=== PATIENT | female | born 1960 | race Caucasian/White ===

== ENCOUNTER 2016-10-04 09:35 | Emergency (ER) | payer BC ==
[2016-10-04 09:47] VITALS: BP 172/93
--- NOTE | 2016-10-04 09:58 | UC ---
Respiratory Complaint HPI - HPI Summary HPI Summary: 55F presents with productive cough for 3 days. She denies any fever, sinus congestion, sore throat, chest pain, or headache. She has been using Ntyquil, robitussin, and Tylenol with some relief. She denies any smoking or history or history of respiratory illness. PMH of hypothyroidism and HTN. - History of Current Complaint Chief Complaint: UCRespiratory Stated Complaint: COUGH, AND CHEST CONGESTION Time Seen by Provider: 10/04/16 09:53 Hx Last Menstrual Period: 08/05/16 - Allergies/Home Medications Allergies/Adverse Reactions: Allergies Allergy/AdvReac Type Severity Reaction Status Date / Time Amoxicillin Allergy Intermediate Rash Verified 01/21/16 10:16 Home Medications: Home Medications GuaiFENesin DM* [Robitussin DM*] 10/04/16 [History] Beqfqplmkhhex-Jsynlftptd-Hamnt [Nyquil Severe Cold/Flu 5-6.25-10-325 mg/15Ml] 10/04/16 [History] PMH/Surg Hx/FS Hx/Imm Hx Endocrine History Of: Reports: Thyroid Disease - Hypothyroid Denies: Diabetes Cardiovascular History Of: Reports: Hypertension Denies: Cardiac Disorders Respiratory History Of: Denies: COPD, Asthma GI/ History Of: Reports: Kidney Stones - h/o Denies: Ulcer - Surgical History Surgical History: Yes Surgery Procedure, Year, and Place: Lap Band Surgery 2007, reversed 2016. Bilateral Carpal Tunnel . c-SECTIONS X 2 - Family History Known Family History: Positive: Cardiac Disease - Mother, Father, and Brother had MIs, Hypertension, Diabetes - Mother, Father Negative: Respiratory Disease - Social History Alcohol Use: Rare Substance Use Type: None Smoking Status (MU): Former Smoker Type: Cigarettes Amount Used/How Often: 1/2 PPD Length of Time of Smoking/Using Tobacco: 10 years Have You Smoked in the Last Year: No When Did the Patient Quit Smoking/Using Tobacco: 1986 Household Exposure Type: Cigarettes - Immunization History Hx Tetanus, Diphtheria Vaccination: Yes Vaccination Up to Date: Yes Review of Systems Constitutional: Negative Eyes: Negative ENT: Negative Respiratory: Cough Cardiovascular: Negative Gastrointestinal: Negative All Other Systems Reviewed And Are Negative: Yes Physical Exam Triage Information Reviewed: Yes Appearance: Well-Appearing Vital Signs: Initial Vital Signs Temp 98.4 F 01/29/17 09:40 Pulse 80 10/04/16 09:40 Resp 20 10/04/16 09:40 BP 172/93 10/04/16 09:40 Pulse Ox 98 10/04/16 09:40 Vital Signs Reviewed: Yes ENT: Positive: Normal ENT inspection, Pharynx normal, TMs normal Neck: Positive: Supple, Nontender, No Lymphadenopathy Respiratory: Positive: Lungs clear, Normal breath sounds, No respiratory distress, No accessory muscle use, Other: - neg egophony. Negative: Crackles, Rhonchi, Stridor, Wheezing Cardiovascular: Positive: RRR UC Diagnostic Evaluation - Laboratory O2 Sat by Pulse Oximetry: 98 Respiratory Course/Dx - Course Course Of Treatment: 55F presents with productive cough for 3 days. She has taking OTC cough medication with some relief. Her lungs are CTA. Discussed likely viral but gave option of antibiotic but patient declined at this time. advised if develops fever to come back or follow up with primary. will add tessalon and advised to use humdifier. patient agrees with plan. - Differential Dx/Diagnosis Differential Diagnosis/HQI/PQRI: Bronchitis, Influenza, Laryngitis, Lower Resp Infection Provider Diagnoses: bronchitis Discharge - Discharge Plan Condition: Good Disposition: HOME Prescriptions: Benzonatate CAP* [Tessalon CAP*] 100 mg PO TID #15 cap Patient Education Materials: Acute Bronchitis (ED) Forms: *Work Release Referrals: Kaylin Gilmore MD [Primary Care Provider] - Additional Instructions: Use Tessalon three times a day for cough Use saline in the nose Use humidifier or place warm bowls of water around the room Cough can last up to 4 weeks Follow up with primary care physician in 5 days Return to ED if develop chest pain or shortness of breath or any new or worsening symptoms
== END 2016-10-04 10:20 | disposition home or self-care (01) ==
LOC: UCEAST 09:35
DX: J40 Bronchitis, not specified as acute or chronic (principal); Z98.84 Bariatric surgery status; Z87.891 Personal history of nicotine dependence; Z88.1 Allergy status to other antibiotic agents
CPT/HCPCS: 99212; G0463

== ENCOUNTER 2016-10-18 13:14 | Emergency (ER) | payer BC ==
[2016-10-18 13:39] VITALS: BP 149/69
[2016-10-18] MEDS ORDERED: Naproxen TAB* 250 MG PO ONE (14:02)
--- NOTE | 2016-10-18 14:51 | RAD ---
INDICATION: Back pain 2 days after a fall COMPARISON: CT abdomen pelvis dated September 14, 2009 TECHNIQUE: 2 views of the thoracic spine and 5 views of the lumbar spine were obtained. FINDINGS: The vertebra are in normal alignment. No acute fracture is seen. Degenerative changes include loss of intervertebral disc height most severely affecting the mid and lower thoracic spine where there are anterior marginal osteophytes.. IMPRESSION: Degenerative changes as described above without radiographic evidence of acute fracture or dislocation.
--- NOTE | 2016-10-26 15:20 | UC ---
Kena Marie Claudia, scribed for Debra Beverly MD on 10/18/16 at 1355 . Back Pain HPI - HPI Summary HPI Summary: 55 year old female presents to the [facility] post mechanical fall on Wednesday10/16/16. She Pt felt some soreness in her back yesterday but today she woke up with intense mid to right posterior area back pain as well as lower para spinal pain. Pt notes that she is concerned because she is driving to [place] in the coming weeks to visit family and sitting in the car/ twisting around on her way to [facility] today aggravated the pain. Pt describes the pain as a pressure/pulling. - History of Current Complaint Chief Complaint: UCBackPain Stated Complaint: FELL-LOWER BACK PAIN Time Seen by Provider: 10/18/16 13:46 Hx Obtained From: Patient Hx Last Menstrual Period: 08/05/16 ?: No Onset/Duration: Sudden Onset, Lasting Days, Still Present Timing: Constant Back Pain: Is Discrete @ - lower paraspinal Character: Spasmodic - pressure Aggravating: Movement - twisting Associated Signs And Symptoms: Negative: Fever, Bladder Incontinence, Bowel Incontinence - Allergies/Home Medications Allergies/Adverse Reactions: Allergies Allergy/AdvReac Type Severity Reaction Status Date / Time Amoxicillin Allergy Intermediate Rash Verified 10/18/16 13:32 Home Medications: Home Medications Blood Pressure Med W/ Diuretic 1 tab DAILY 10/18/16 [History] PMH/Surg Hx/FS Hx/Imm Hx Previously Healthy: Yes Endocrine History Of: Reports: Thyroid Disease - Hypothyroid Denies: Diabetes Cardiovascular History Of: Reports: Hypertension Denies: Cardiac Disorders Respiratory History Of: Denies: COPD, Asthma GI/ History Of: Reports: Kidney Stones - h/o Denies: Ulcer - Surgical History Surgical History: Yes Surgery Procedure, Year, and Place: Lap Band Surgery 2007, reversed 2016. Bilateral Carpal Tunnel . c-SECTIONS X 2 - Family History Known Family History: Positive: Cardiac Disease - Mother, Father, and Brother had MIs, Hypertension, Diabetes - Mother, Father Negative: Respiratory Disease - Social History Occupation: Employed Full-time Lives: With Family Alcohol Use: None Substance Use Type: None Smoking Status (MU): Former Smoker Type: Cigarettes Amount Used/How Often: 1/2 PPD Length of Time of Smoking/Using Tobacco: 10 years Have You Smoked in the Last Year: No When Did the Patient Quit Smoking/Using Tobacco: 1986 Household Exposure Type: Cigarettes - Immunization History Hx Tetanus, Diphtheria Vaccination: Yes Vaccination Up to Date: Yes Review of Systems Constitutional: Other - NO FEVER CHILLS Skin: Negative Eyes: Negative ENT: Negative Respiratory: Negative Cardiovascular: Negative Gastrointestinal: Negative Genitourinary: Negative Motor: Negative Neurovascular: Negative Musculoskeletal: Other: - BACK PAIN. see hpi. Neurological: Negative Psychological: Negative All Other Systems Reviewed And Are Negative: Yes Physical Exam Triage Information Reviewed: Yes Appearance: Well-Nourished Vital Signs: Initial Vital Signs Temp 98.3 F 10/18/16 13:34 Pulse 91 10/18/16 13:34 Resp 18 10/18/16 13:34 BP 149/69 10/18/16 13:34 Pulse Ox 98 10/18/16 13:34 Vital Signs Reviewed: Yes Eye Exam: Normal ENT Exam: Normal Dental Exam: Normal Neck exam: Normal Respiratory Exam: Normal Respiratory: Positive: Chest non-tender, Lungs clear, Normal breath sounds, No respiratory distress, No accessory muscle use Cardiovascular Exam: Normal, Other - systolic murmer 1-2 / 6 at LSB Cardiovascular: Positive: RRR, Pulses Normal, Brisk Capillary Refill Abdominal Exam: Normal Abdomen Description: Positive: Nontender, No Organomegaly, Soft Musculoskeletal Exam: Normal, Other - Tender generalized middle of mid - low back, worse leaning forward. Jaonna tender mid lumbar area. No ecchymosis, no crepitus. No cvat. No point rib pain or crepitus. Musculoskeletal: Positive: Strength Intact Neurological Exam: Normal - NONFOCAL Psychological Exam: Normal - CONVERSING EASILY AND APPROPRIATELY Skin Exam: Normal - NO VISIBLE RASHES Back Pain Course/Dx - Course Course Of Treatment: XRays (L/T) - reviewed with pt. ++ djd, + oa. No acute fx. See Oculeve. 14:55 awaiting report. No new problems in CCC. Work note offered, pt declines. She will f/u w/ pcp. She has plans to f/u re cardiology as well (heart m). Ms. Banks was given the opportunity to ask several questions, to which I answered to the best of my ability. - Differential Dx/Diagnosis Provider Diagnoses: Acute lumbar thoracic strain Discharge - Discharge Plan Condition: Stable Disposition: HOME Discharge Disposition Comment: Sign-out due to shift change. Prescriptions: Cyclobenzaprine TAB* [Flexeril TAB*] 10 mg PO TID PRN #20 tab PRN Reason: Spasms Naproxen [Naproxen 500 MG TABS] 500 mg PO BID PRN #30 tab PRN Reason: Pain Patient Education Materials: Low Back Strain (ED), Arthritis (ED) Referrals: No Primary Care Phys,NOPCP [Primary Care Provider] - Additional Instructions: Follow up with your primary care physician at [place], in the next 1-2 weeks for re-evaluation. Seek medical attention for worse or new problems in the meantime. The documentation as recorded by the Kena oviedo Claudia accurately reflects the service I personally performed and the decisions made by me, Debra Beverly MD.
== END 2016-10-18 15:00 | disposition home or self-care (01) ==
LOC: UCEAST 13:14
DX: S39.012A Strain of muscle, fascia and tendon of lower back, initial encounter (principal); S29.012A Strain of muscle and tendon of back wall of thorax, initial encounter; W19.XXXA Unspecified fall, initial encounter; Y93.9 Activity, unspecified; Y92.9 Unspecified place or not applicable; Z88.0 Allergy status to penicillin; I10 Essential (primary) hypertension; Z87.891 Personal history of nicotine dependence; Z98.84 Bariatric surgery status
CPT/HCPCS: 72070; 72110; 99212; A9270-GY; G0463

== ENCOUNTER 2017-03-19 11:31 | Emergency (ER) | payer BC ==
--- NOTE | 2017-03-19 13:54 | UC ---
Knee Pain HPI - HPI Summary HPI Summary: compalint of right knee pain that started 6 daysa go was playing with grandchildren and fell fell forwrd going up a hill was able to ambulate afterwards knee has had intermittent swelling pain is in the front of knee getting up from sitting is the most painful left knee also painful but not as painful taking tyleno and ibuprofen with some relief using a cold knee wrap with some relief - History of Current Complaint Hx Obtained From: Patient Hx Last Menstrual Period: 01/17/17 <Koki Ramirez - Last Filed: 03/19/17 14:55> <Kaylin Hess - Last Filed: 03/19/17 15:10> - History of Current Complaint Chief Complaint: UCLowerExtremity Stated Complaint: KNEE INJURY Time Seen by Provider: 03/19/17 13:43 - Allergies/Home Medications Allergies/Adverse Reactions: Allergies Allergy/AdvReac Type Severity Reaction Status Date / Time Amoxicillin Allergy Intermediate Rash Verified 03/19/17 13:23 Home Medications: Home Medications Acetaminophen TAB* [Tylenol TAB*] 03/19/17 [History] PMH/Surg Hx/FS Hx/Imm Hx Previously Healthy: Yes Endocrine History: Hypothyroidism Cardiovascular History: Hypertension - Surgical History Surgical History: Yes Surgery Procedure, Year, and Place: Lap Band Surgery 2007, reversed 2016. Bilateral Carpal Tunnel . c-SECTIONS X 2. Lap band removal - Family History Known Family History: Positive: Cardiac Disease - Mother, Father, and Brother had MIs, Hypertension, Diabetes - Mother, Father Negative: Respiratory Disease - Social History Occupation: Employed Full-time Lives: With Family Alcohol Use: None Substance Use Type: None Smoking Status (MU): Former Smoker Type: Cigarettes Amount Used/How Often: 1/2 PPD Length of Time of Smoking/Using Tobacco: 10 years Have You Smoked in the Last Year: No When Did the Patient Quit Smoking/Using Tobacco: 1986 Household Exposure Type: Cigarettes - Immunization History Hx Tetanus, Diphtheria Vaccination: Yes Vaccination Up to Date: Yes <Koki Ramirez - Last Filed: 03/19/17 14:55> Review of Systems Constitutional: Negative Skin: Negative Eyes: Negative ENT: Negative Respiratory: Negative Cardiovascular: Negative Gastrointestinal: Negative Genitourinary: Negative Motor: Negative Neurovascular: Negative Musculoskeletal: Other: - bilateral knee pain Neurological: Negative Psychological: Negative All Other Systems Reviewed And Are Negative: Yes <Koki Ramirez - Last Filed: 03/19/17 14:55> Physical Exam Triage Information Reviewed: Yes Appearance: No Pain Distress, Well-Nourished Vital Signs: Initial Vital Signs Temp 97.4 F 03/19/17 13:24 Pulse 71 03/19/17 13:24 Resp 16 03/19/17 13:24 Pulse Ox 98 03/19/17 13:24 Vital Signs Reviewed: Yes Eyes: Positive: Conjunctiva Inflamed ENT: Positive: Pharynx normal, TMs normal Neck: Positive: No Lymphadenopathy Respiratory: Positive: Lungs clear, Normal breath sounds, No respiratory distress, No accessory muscle use Cardiovascular: Positive: RRR, No Murmur, Pulses Normal Abdomen Description: Positive: Nontender, Soft Bowel Sounds: Positive: Present Musculoskeletal: Positive: Other: - No bony deformities, tenderness above the patella, No bakers cyst. Full ROM (extension/flexion). Limited internal and external rotation. Medial, lateral meniscus; anterior, posterior cruciate ligaments ,medial & lateral collateral ligaments intact as assessed with negative Anterior/Posterior Drawer signs, Lachmans, and McMurrays Tests. No effusion, bulge/balloon sign. left knee slight tenderness medial side of patella No bakers cyst. Full ROM (extension/flexion). Limited internal and external rotation. Medial, lateral meniscus; anterior, posterior cruciate ligaments ,medial & lateral collateral ligaments intact as assessed with negative Anterior/Posterior Drawer signs, Lachmans, and McMurrays Tests. No effusion, bulge/balloon sign. Neurological: Positive: Alert Psychological Exam: Normal Skin Exam: Normal <Koki Ramirez - Last Filed: 03/19/17 14:55> Vital Signs: Initial Vital Signs Temp 97.4 F 03/19/17 13:24 Pulse 71 03/19/17 13:24 Resp 16 03/19/17 13:24 BP 148/83 03/19/17 13:24 Pulse Ox 98 03/19/17 13:24 <Kaylin Hess - Last Filed: 03/19/17 15:10> Knee Pain Course/Dx - Course Course Of Treatment: exam completed. x-ray shows no fracture. will treat for knee sprain - further evaluation and treatment with PT and orthopedics - Differential Dx/Diagnosis Differential Diagnosis/HQI/PQRI: Fracture (Closed), Sprain, Strain Provider Diagnoses: right knee sprain, elevated blood pressure <Koki Ramirez - Last Filed: 03/19/17 14:55> Discharge <Koki Ramirez - Last Filed: 03/19/17 14:55> <Kaylin Hess - Last Filed: 03/19/17 15:10> - Discharge Plan Condition: Stable Disposition: HOME Patient Education Materials: Knee Pain (ED), Knee Sprain (ED), RICE Therapy (ED ) Referrals: Kaylin Gilmore MD [Primary Care Provider] - Agustina Diaz MD [Medical Doctor] - Additional Instructions: Please contact physical therapy and talent management specialist for further evaluation and treatment Increase fluids and rest Take acetaminophen or ibuprofen for pain Please review your discharge instructions. If your symptoms do not improve please call your primary care provider or return to urgent care. Your blood pressure is elevated. Please contact your primary care provider within 1 -4 weeks for further evaluation Attestation Statement User Type: Provider - I was available for consult. This patient was seen by the JAVIER. The patient was not presented to, seen by, or examined by me. -Jyoti <Kaylin Hess - Last Filed: 03/19/17 15:10>
[2017-03-19 14:26] VITALS: BP 148/83
--- NOTE | 2017-03-19 14:33 | RAD ---
HISTORY: Trauma, right knee COMPARISONS: None VIEWS: 2, Frontal and lateral views of the right knee FINDINGS: BONE DENSITY: Normal. BONES: There is no displaced fracture. JOINTS: There is mild tricompartmental osteoarthritis. There is a small suprapatellar joint effusion. ALIGNMENT: There is no dislocation. SOFT TISSUES: Unremarkable. OTHER FINDINGS: None. IMPRESSION: SMALL EFFUSION. NO ACUTE OSSEOUS INJURY. IF SYMPTOMS PERSIST, RECOMMEND REPEAT IMAGING.
== END 2017-03-19 14:55 | disposition home or self-care (01) ==
LOC: UCEAST 11:31
DX: S93.401A Sprain of unspecified ligament of right ankle, initial encounter (principal); R03.0 Elevated blood-pressure reading, without diagnosis of hypertension; W17.89XA Other fall from one level to another, initial encounter; Y93.01 Activity, walking, marching and hiking
CPT/HCPCS: 99211; G0463

== ENCOUNTER 2019-10-08 13:31 | Emergency (ER) | payer BC ==
--- OUTSIDE RECORDS SUMMARY | 2019-10-08 13:49 | XMS REPORT | Continuity of Care Document ---
:1960 External Reference #:[id number] Author Name Sofie Villagran MD (transmitted by agent of provider Eulalia Vera) Address [address], [address] [place] [address] Care Team Providers Name Role Phone Gloria Varela, PE MANAGER - Nurse Care Team Information Rn Transition [phone] Practitioner Problems Description No Information Available Social History Type Date Description Comments Sex Unknown ETOH Use Occasionally consumes 2-3 drinks alcohol Recreational Drug Use Denies Drug Use Tobacco Use Start: Unknown End: Patient is a former smoker Unknown Smoking Status Reviewed: 09/09/19 Patient is a former smoker Allergies, Adverse Reactions, Alerts Active Allergies Reaction Severity Comments Date Lisinopril 09/09/2019 Amoxicillin 09/09/2019 Soma Compound 09/09/2019 Medications Active Medications SIG Qnty Indications Ordering Date Provider Celebrex take one Unknown 200mg Capsules capsule/table t daily by mouth Cardizem CD 1 by mouth Unknown 120mg Caps ER 24HR every day Cymbalta 2 by mouth Unknown 30mg Caps DR Part every day Hydrochlorothiazide 2 by mouth Unknown 12.5mg Tablets every day Irbesartan 2 by mouth Unknown 150mg Tablets every day Synthroid 1 by mouth Unknown 200mcg Tablets every day Spironolactone 1 by mouth Unknown 25mg Tablets every day Triamcinolone Acetonide apply 3x day Unknown 0.1% Cream until clear Immunizations Description No Information Available Vital Signs Date Vital Result Comment 09/09/2019 8:20am Height 63.5 inches 5'3.50" Weight 237.00 lb Heart Rate 78 /min BP Systolic 112 mmHg BP Diastolic 72 mmHg O2 % BldC Oximetry 96 % BMI (Body Mass Index) 41.3 kg/m2 Results Description No Information Available Procedures Description No Information Available Medical Devices Description No Information Available Encounters Type Date Location Provider Dx Diagnosis Office Visit 09/09/2019 [facility] Sofie Villagran MD R06.83 Snoring 9:[facility] Z68.41 Body mass index (BMI) 40.0-44.9, adult Assessments Date Code Description Provider 09/09/2019 R06.83 Snoring Sofie Villagran MD 09/09/2019 Z68.41 Body mass index (BMI) 40.0-44.9, adult Sofie Villagran MD Plan of Treatment Future Appointment(s):10/06/2019 9:00 am - Agustina Buck NP at [facility]09/09/2019 - Sofie Villagran, MDR06.83 SnoringFollow up:1 [id number] Body mass index (BMI) 40.0-44.9, adult Functional Status Description No Information Available Mental Status Description No Information Available Referrals Description No Information Available
--- NOTE | 2019-10-08 14:05 | ED ---
Shortness of Breath - HPI Summary HPI Summary: Patient is a 58-year-old female who presents emergency department for shortness of breath times. Patient states she was that work today when she started to feel anxious, short of breath, dizziness and headache. Patient works at [employer] and family member happened to be at [email or web address] and waved to pt. . Patient had felt confused and dizzy and did not wave back. Patient states since in the ER she is feeling better. She notes that she has been anxious lately as she is going to be undergoing bariatric surgery. Past medical history of hypertension, obesity, diabetes. Patient states she had a cardiac catheterization last year that showed 20% stenosis but no occlusions. Patient denies recent illness,, fever, cough, abdominal pain. Sxs are moderate in severity. No current modifying factors. - History of Current Complaint Chief Complaint: EDShortnessOfBreath Time Seen by Provider: 10/08/19 13:41 Hx Obtained From: Patient - Allergy/Home Medications Allergies/Adverse Reactions: Allergies Allergy/AdvReac Type Severity Reaction Status Date / Time amoxicillin Allergy Intermediate Rash Verified 10/08/19 13:38 PMH/Surg Hx/FS Hx/Imm Hx Previously Healthy: Yes Endocrine/Hematology History: Reports: Hx Thyroid Disease - Hypothyroid Denies: Hx Diabetes Cardiovascular History: Reports: Hx Hypertension Respiratory History: Denies: Hx Asthma, Hx Chronic Obstructive Pulmonary Disease (COPD) GI History: Reports: Hx Gastroesophageal Reflux Disease - NO MEDS Denies: Hx Ulcer History: Reports: Hx Kidney Stones - h/o Sensory History: Denies: Hx Contacts or Glasses, Hx Hearing Aid Opthamlomology History: Denies: Hx Contacts or Glasses - Surgical History Surgery Procedure, Year, and Place: Lap Band Surgery 2007, reversed 2016. Bilateral Carpal Tunnel . c-SECTIONS X 2. Lap band removal Hx Anesthesia Reactions: No Infectious Disease History: No Infectious Disease History: Reports: Hx Shingles - 2009 Denies: Hx Clostridium Difficile, Hx Hepatitis, Hx Human Immunodeficiency Virus (HIV), Hx of Known/Suspected MRSA, Hx Tuberculosis, Hx Known/Suspected VRE , Hx Known/Suspected VRSA, History Other Infectious Disease, Traveled Outside the [place] in Last 30 Days - Family History Known Family History: Positive: Cardiac Disease - Mother, Father, and Brother had MIs, Hypertension, Diabetes - Mother, Father Negative: Respiratory Disease - Social History Occupation: Employed Full-time Lives: With Family Alcohol Use: Rare Substance Use Type: Reports: None Hx Tobacco Use: No Smoking Status (MU): Former Smoker Type: Cigarettes Amount Used/How Often: 1/2 PPD Length of Time of Smoking/Using Tobacco: 10 years Have You Smoked in the Last Year: No Review of Systems Constitutional: Negative Negative: Fever Eyes: Negative ENT: Negative Cardiovascular: Negative Negative: Palpitations, Chest Pain Positive: Shortness Of Breath. Negative: Cough Gastrointestinal: Negative Negative: Abdominal Pain, Vomiting, Diarrhea Genitourinary: Negative Musculoskeletal: Negative Skin: Negative Neurological: Negative Positive: Anxious All Other Systems Reviewed And Are Negative: Yes Physical Exam Triage Information Reviewed: Yes Vital Signs On Initial Exam: Initial Vitals Temp Pulse Resp BP Pulse Ox 98.0 F 88 16 156/112 100 10/08/19 13:34 10/08/19 13:34 10/08/19 13:34 10/08/19 13:34 10/08/19 13:34 Vital Signs Reviewed: Yes Appearance: Positive: Well-Appearing - Pt. sitting up in bed in NAD. Anxious. Family present. Skin: Positive: Warm, Dry Head/Face: Positive: Normal Head/Face Inspection Eyes: Positive: Normal, EOMI, LASHANDA Neck: Positive: Supple Respiratory/Lung Sounds: Positive: Clear to Auscultation, Breath Sounds Present. Negative: Rales, Rhonchi, Wheezes Cardiovascular: Positive: Normal, RRR Musculoskeletal: Positive: Normal, Strength/ROM Intact. Negative: Edema Left, Edema Right Neurological: Positive: Normal, CN Intact II-III, Normal Gait, Facial Symmetry, Speech Normal. Negative: Disoriented, Facial Droop Psychiatric: Positive: Anxious Procedures - Sedation Patient Received Moderate/Deep Sedation with Procedure: No Diagnostics - Vital Signs Vital Signs Temp Pulse Resp BP Pulse Ox 10/08/19 14:00 22 10/08/19 13:48 84 20 152/113 98 10/08/19 13:45 87 25 98 10/08/19 13:34 98.0 F 88 16 156/112 100 - Laboratory Result Diagrams: 10/08/19 14:03 10/08/19 14:03 Lab Statement: Any lab studies that have been ordered have been reviewed, and results considered in the medical decision making process. Course/Dx - Course Course Of Treatment: Pt. presenting after an episode of SOB, dizziness and h/a. In the ED pt. is feeling better. Denies CP. BP initially elevated but improved. Pt. notes she has been stresses lately and has been working more than usual and notes she does not drink very much water. ECG done at 1421 shows a sinus rhythm of 78bpm, normal axis, no STEMI, appropriate intervals. Labs are unremarkable including normal troponin and ddimer. CXR negative for acute findings per radiology. Positive ortho statics from lying to sitting. No drop with standing. Pt. ambulated and feeling well. Results discussed. Will dc home. To increase fluids. To f.u with pcp in 2-3 days and return to er if sxs change or worsen. Pt. understands and agrees with plan. - Diagnoses Differential Diagnosis/HQI/PQRI: Positive: Asthma, Bronchitis, COPD Exacerbation , AK, Pulmonary Embolism Provider Diagnoses: Shortness of breath Discharge ED - Sign-Out/Discharge Documenting (check all that apply): Patient Departure - Discharge Plan Condition: Improved Disposition: HOME Patient Education Materials: Dehydration (ED), Shortness of Breath (ED) Forms: *Work Release Referrals: Gloria Varela, [employer] [facility] [Primary Care Provider] - Additional Instructions: Please see your PCP in 2-3 days for recheck Increase fluids and rest Return to ER if symptoms change or worsen - Billing Disposition and Condition Condition: IMPROVED Disposition: Home - Attestation Statements Provider Attestation: I was available for consultation for this patient. I did not evaluate the patient or participate in any medical decision making or disposition decisions unless I am specifically named in the chart as having consulted on the patient. If I have consulted on the patient, please see my own ED note on the patient encounter. Pascual Do MD
[2019-10-08 14:20] LABS: ABS Basophils 0.1 10^3/ul (0-0.2); ABS Eosinophils 0.4 10^3/ul (0-0.6); ABS Lymphocytes 2.5 10^3/ul (1.0-4.8); ABS Monocytes 0.9 10^3/ul (0-0.8); ABS Neutrophils 7.6 10^3/ul (1.5-7.7); Eosinophil % 3.1 %; Hematocrit 42 % (35-47); Hemoglobin 14.2 g/dL (12.0-16.0); Mean Corpuscular HGB Conc 34 g/dL (31-36); Mean Corpuscular Hemoglobin 31 pg (27-31); Mean Corpuscular Volume 91 fL (80-97); Mean Platelet Volume 8.4 fL (7.4-10.4); Platelet Count 287 10^3/uL (150-450); Red Blood Count 4.58 10^6 /uL (3.70-4.87); Red Cell Distribution Width 14 % (10-15); White Blood Count 11.5 10^3/uL (3.5-10.8)
[2019-10-08 14:29] LABS: Albumin 4.2 g/dL (3.2-5.2); Albumin/Globulin Ratio 1.3 (1-3); BUN/Creatinine Ratio 27.4 (8-20); Calcium 9.3 mg/dL (8.6-10.3); EGFR African American 99.4 (>60); EGFR Non-African American 82.2 (>60); Globulin 3.3 g/dL (2-4); Potassium 3.6 mmol/L (3.5-5.0); Total Bilirubin 0.3 mg/dL (0.2-1.0); Total Protein 7.5 g/dL (6.4-8.9)
[2019-10-08 14:36] LABS: Activated Partial Thrombo Time 34.9 seconds (26.0-38.0); INR 1.09 (0.82-1.09)
[2019-10-08 16:59] VITALS: BP 151/110
== END 2019-10-08 16:59 | disposition home or self-care (01) ==
LOC: ED 13:31
DX: R06.02 Shortness of breath (principal); F41.9 Anxiety disorder, unspecified; E03.9 Hypothyroidism, unspecified; I10 Essential (primary) hypertension; Z88.0 Allergy status to penicillin; Z87.891 Personal history of nicotine dependence
CPT/HCPCS: 36415; 71045; 80053; 83605; 84484; 85025; 85379; 85610; 85730; 93005; 99284

== ENCOUNTER 2020-06-19 08:11 | Inpatient (IN) ==
[~2020-06-19 08:11] MED LIST: Buffered Lidocaine 1% SYRIN 1 ml INTRADERM ONE; Lactated Ringers 1000 ml BAG 1,000 ML IV SCH
[2020-06-19] MEDS ORDERED: DiMENhydriNATE IV 50 mg/ml 1 ml VIAL IV PUSH PRN (08:27)
[2020-06-19] MEDS ORDERED: Naloxone 0.4 mg VIAL 0.4 mg/ml 1 ml VIAL IV PRN (08:27)
[2020-06-19] MEDS ORDERED: Clindamycin 900 MG/D5W BAG 900 MG/50 ML BAG IVPB ONE (08:41)
[2020-06-19] MEDS ORDERED: Heparin 5000 UNITS/ML 1 mL VIAL ONE (08:41)
[2020-06-19] MEDS ORDERED: Buffered Lidocaine 1% SYRIN 1 ml INTRADERM ONE (08:41)
[2020-06-19] MEDS ORDERED: Bupivacaine 0.25% SDV 30 ML ONE (10:43)
[2020-06-19] MEDS ORDERED: Methylene Blue 0.5 % 50 MG/10 ML AMP IV ONE (10:43)
[2020-06-19] MEDS ORDERED: Rocuronium 50 mg VIAL 10 mg/ml 5 ml VIAL (50 mg) ONE ×3 (10:54→13:44)
[2020-06-19] MEDS ORDERED: fentaNYL 250 mcg/5 ml 50 MCG/ML 5 ml VIAL (250 MCG) ONE (10:54)
[2020-06-19] MEDS ORDERED: Propofol 10 MG/ML 20 ML BTL ONE (10:54)
[2020-06-19] MEDS ORDERED: Dexmedetomidine 200 mcg/2 ml 2 ml VIAL (200 mcg) ONE (10:54)
[2020-06-19] MEDS ORDERED: Lidocaine 2% PF 5 ML VIAL ONE (10:54)
[2020-06-19] MEDS ORDERED: Midazolam 2 mg/2 ml VIAL 1 mg/ml 2 ml VIAL (2 mg) ONE (10:54)
[2020-06-19] MEDS ORDERED: Ondansetron 4 mg VIAL 2 MG/ML 2 ml VIAL ONE ×2 (11:05→14:11)
[2020-06-19] MEDS ORDERED: Sugammadex 500 MG/5 ML 5 ml VIAL IV PUSH ONE (14:10)
[2020-06-19] MEDS ORDERED: DiMENhydriNATE IV 50 mg/ml 1 ml VIAL ONE (14:25)
[2020-06-19] MEDS ORDERED: HYDROcodone/ACET. 7.5/325 LIQ 15 ML UDC PO PRN (14:28)
[2020-06-19] MEDS ORDERED: Dextrose 50% Syringe 50 ml 25 GM/50 ML SYRINGE IV PUSH PRN (14:34)
[2020-06-19] MEDS: fentaNYL 100 mcg/2 ml 50 MCG/ML VIAL IV PRN ×4 (14:57→15:48)
[2020-06-19] MEDS ORDERED: fentaNYL 100 mcg/2 ml 50 MCG/ML VIAL ONE ×2 (14:57→15:29)
[2020-06-19 16:58] LABS: Urine Appearance Clear; Urine Bilirubin Negative (Negative); Urine Blood Negative (Negative); Urine Color Straw; Urine Glucose Negative (Negative); Urine Ketones Trace (Negative); Urine Nitrite Negative (Negative); Urine Protein Negative (Negative); Urine Specific Gravity 1.011 (1.010-1.030); Urine Urobilinogen Negative (Negative)
[2020-06-19] MEDS: HYDROmorphone 0.5 MG/0.5 ML SYRINGE IV SLOW PU PRN (20:19)
[2020-06-19] MEDS: Ondansetron 4 mg VIAL 2 MG/ML 2 ml VIAL IV PRN (20:19)
[2020-06-19] MEDS: Famotidine IV 10 MG/ML 2 ml VIAL (20 mg) IV SLOW PU SCH (21:12)
[2020-06-19] MEDS: Heparin 5000 UNITS/ML 1 mL VIAL SUBCUT SCH (21:12)
[2020-06-19] MEDS: Lactated Ringers 1000 ml BAG 1,000 ML IV SCH (23:05)
[2020-06-20] MEDS: HYDROmorphone 0.5 MG/0.5 ML SYRINGE IV SLOW PU PRN ×2 (01:26→06:43)
[2020-06-20] MEDS: Heparin 5000 UNITS/ML 1 mL VIAL SUBCUT SCH ×3 (05:03→21:39)
[2020-06-20] MEDS: Lactated Ringers 1000 ml BAG 1,000 ML IV SCH ×2 (05:04→12:30)
[2020-06-20] MEDS: Ondansetron 4 mg VIAL 2 MG/ML 2 ml VIAL IV PRN (06:52)
[2020-06-20] MEDS: Famotidine IV 10 MG/ML 2 ml VIAL (20 mg) IV SLOW PU SCH ×2 (09:48→21:35)
[2020-06-20] MEDS: D5W 1/2 NS KCl 20 meq 1000 ml 1,000 ML IV SCH (15:01)
[2020-06-21] MEDS: D5W 1/2 NS KCl 20 meq 1000 ml 1,000 ML IV SCH (00:25)
[2020-06-21] MEDS: Ondansetron 4 mg VIAL 2 MG/ML 2 ml VIAL IV PRN (00:54)
[2020-06-21] MEDS: Heparin 5000 UNITS/ML 1 mL VIAL SUBCUT SCH (06:10)
[2020-06-21 08:17] VITALS: BP 154/79
[2020-06-21] MEDS: Famotidine IV 10 MG/ML 2 ml VIAL (20 mg) IV SLOW PU SCH (09:20)
== END 2020-06-21 11:08 | disposition home or self-care (01) | DRG 403 ==
LOC: AA 08:11 → SSU 14:28
PROVIDERS: ADMIT Surgery; ATTEND Surgery

== ENCOUNTER 2020-06-21 18:01 | Observation (INO) ==
[2020-06-21] MEDS ORDERED: Lactated Ringers 1000 ml BAG 1,000 ML IV ONE ×2 (19:38→22:52)
[2020-06-21] MEDS ORDERED: Famotidine IV 10 MG/ML 2 ml VIAL (20 mg) IV SLOW PU ONE (19:38)
[2020-06-21] MEDS ORDERED: Ondansetron 4 mg VIAL 2 MG/ML 2 ml VIAL IV ONE (19:38)
[2020-06-21 20:44] LABS: ABS Basophils 0.1 10^3/ul (0-0.2); ABS Lymphocytes 1.9 10^3/ul (1.0-4.8); ABS Monocytes 0.8 10^3/ul (0-0.8); ABS Neutrophils 8.3 10^3/ul (1.5-7.7); Eosinophil % 0.2 %; Hematocrit 40 % (35-47); Hemoglobin 13.9 g/dL (12.0-16.0); Lymphocyte % 17.1 %; Mean Corpuscular HGB Conc 35 g/dL (31-36); Mean Corpuscular Hemoglobin 31 pg (27-31); Mean Corpuscular Volume 89 fL (80-97); Platelet Count 264 10^3/uL (150-450); Red Blood Count 4.43 10^6 /uL (3.70-4.87); Red Cell Distribution Width 13 % (10-15)
[2020-06-21 21:02] LABS: Albumin 4.4 g/dL (3.2-5.2); Albumin/Globulin Ratio 1.1 (1-3); BUN/Creatinine Ratio 12.5 (8-20); Calcium 9.9 mg/dL (8.6-10.3); EGFR African American 100.7 (>60); EGFR Non-African American 83.2 (>60); Indirect Bilirubin 0.4 mg/dL (0.3-1.0); Potassium 3.9 mmol/L (3.5-5.0); Total Bilirubin 0.5 mg/dL (0.2-1.0); Total Protein 8.4 g/dL (6.4-8.9)
[2020-06-21] MEDS ORDERED: Metoclopramide 5 MG/ML VIAL (10 mg) IV SLOW PU ONE (22:52)
[2020-06-21] MEDS ORDERED: Ondansetron 4 mg VIAL 2 MG/ML 2 ml VIAL IV PRN (23:05)
[2020-06-21] MEDS ORDERED: Metoclopramide 5 MG/ML VIAL (10 mg) IV PRN (23:11)
[2020-06-22] MEDS: Pantoprazole VIAL 40 MG VIAL IV SCH ×2 (01:58→20:00)
[2020-06-22] MEDS: Lactated Ringers 1000 ml BAG 1,000 ML IVPB SCH ×2 (02:37→17:12)
[2020-06-22] MEDS: HYDROmorphone 1 MG/1 ML SYRINGE IV SLOW PU PRN ×2 (06:26→10:42)
[2020-06-22] MEDS: HYDROcodone/ACET. 7.5/325 LIQ 15 ML UDC PO PRN ×2 (14:04→19:59)
[2020-06-23] MEDS: HYDROcodone/ACET. 7.5/325 LIQ 15 ML UDC PO PRN (04:16)
[2020-06-23 05:59] LABS: ABS Eosinophils 0.3 10^3/ul (0-0.6); ABS Lymphocytes 2.3 10^3/ul (1.0-4.8); ABS Monocytes 0.7 10^3/ul (0-0.8); ABS Neutrophils 6.6 10^3/ul (1.5-7.7); Eosinophil % 2.6 %; Hematocrit 37 % (35-47); Hemoglobin 12.5 g/dL (12.0-16.0); Lymphocyte % 23.3 %; Mean Corpuscular HGB Conc 34 g/dL (31-36); Mean Corpuscular Hemoglobin 31 pg (27-31); Mean Corpuscular Volume 91 fL (80-97); Mean Platelet Volume 8.9 fL (7.4-10.4); Platelet Count 273 10^3/uL (150-450); Red Blood Count 4.05 10^6 /uL (3.70-4.87); Red Cell Distribution Width 13 % (10-15); White Blood Count 9.9 10^3/uL (3.5-10.8)
[2020-06-23 06:08] LABS: BUN/Creatinine Ratio 18.1 (8-20); Calcium 9.1 mg/dL (8.6-10.3); EGFR African American 100.7 (>60); EGFR Non-African American 83.2 (>60); Potassium 3.5 mmol/L (3.5-5.0)
[2020-06-23 07:25] VITALS: BP 132/66
[2020-06-23] MEDS: Lactated Ringers 1000 ml BAG 1,000 ML IVPB SCH (08:00)
[2020-06-25] MEDS ORDERED: Scopolamine PATCH Remove NOTE PATCH OFF SCH (16:00)
== END 2020-06-23 10:31 | disposition home or self-care (01) ==
LOC: SSU 18:01 → ED 18:01 → SSU 06-22 02:22
PROVIDERS: ADMIT Surgery; ATTEND Surgery